=== PATIENT | male | born 1965 | race Caucasian/White ===

== ENCOUNTER 2023-05-16 01:57 | Emergency (ER) | payer BC ==
[2023-05-16] MEDS ORDERED: Famotidine 20 MG/2 ML SDV IVPUSH ONE (02:31)
[2023-05-16 02:40] LABS: BASOPHILS ABSOLUTE AUTO 0.05 K/mm3 (0.01-0.08); BASOPHILS PERCENT AUTO 0.5 % (0.1-1.2); EOSINOPHILS ABSOLUTE AUTO 0.14 K/mm3 (0.04-0.54); EOSINOPHILS PERCENT AUTO 1.5 (0.8-7.0); HEMATOCRIT 47.5 % (40.1-51.0); HEMOGLOBIN 16.2 gm/dl (13.7-17.5); IMMATURE GRAN ABSOLUTE AUTO 0.02 K/mm3 (0.00-0.10); IMMATURE GRAN PERCENT AUTO 0.2 % (<=1.0); LYMPHOCYTES ABSOLUTE AUTO 1.85 K/mm3 (1.32-3.57); LYMPHOCYTES PERCENT AUTO 19.7 % (21.8-53.1); MEAN CORPUSCULAR HEMOGLOBIN 29.7 pg (25.7-32.2); MEAN CORPUSCULAR HGB CONC 34.1 g/dl (32.2-35.5); MEAN PLATELET VOLUME 11.3 fl (9.4-12.3); MONOCYTES ABSOLUTE AUTO 0.81 K/mm3 (0.30-0.82); MONOCYTES PERCENT AUTO 8.6 % (5.3-12.2); NEUTROPHILS ABSOLUTE AUTO 6.52 K/mm3 (1.78-5.38); NEUTROPHILS PERCENT AUTO 69.5 % (34.0-67.9); PLATELET COUNT,PLT 251 K/mm3 (163-337); RED BLOOD CELL COUNT 5.46 M/mm3 (4.63-6.08); WHITE BLOOD CELL COUNT,WBC 9.39 K/mm3 (4.23-9.07)
[2023-05-16 02:54] LABS: A/G RATIO 1.1 (1-2); ALBUMIN 4.2 g/dl (3.4-5.0); ANION GAP 13.7 (5-15); BILIRUBIN TOTAL 0.6 mg/dL (0.2-1.0); BUN/CREATININE RATIO 10.8 (14-18); CALCIUM 9.3 mg/dL (8.5-10.1); CREATININE 1.2 mg/dL (0.7-1.3); EST CRCL DRUG DOSING (CG) 64.92 mL/min; POTASSIUM,K 3.7 mEq/L (3.5-5.1)
[2023-05-16] MEDS ORDERED: Iopamidol 612 MG/ML 100 ML Bottle IVPUSH ONE (03:45)
[2023-05-16 05:49] VITALS: BP 153/79; PULSE 59
== END 2023-05-16 05:45 | disposition home or self-care (01) ==
LOC: JD.ED 01:57
DX: K80.20 Calculus of gallbladder without cholecystitis without obstruction (principal); I10 Essential (primary) hypertension; Z79.899 Other long term (current) drug therapy
CPT/HCPCS: 36415; 74177; 80053; 83605; 83690; 83735; 84484; 85025; 93005; 96374; 99284; J3490; Q9967; 93010